=== PATIENT | female | born 1995 | race Two or more races ===

== ENCOUNTER 2024-12-02 14:10 | Inpatient (IN) | payer MEDICAID, OTHER ==
[~2024-12-02] VITALS: Ht 160 cm; Wt 68.3 kg
--- NOTE | 2024-12-02 15:17 | ED.PDOC ---
History of Present Illness HPI Comments 29-year-old female presents with a chief complaint of abdominal pain, flank pain, and fever. Patient states that her pain is localized to her RLQ, radiates to her right flank, describes as sharp, and rates her pain a 9/10. Patient denies any injuries or trauma prior to onset of symptoms. Patient denies any n ausea, vomiting, diarrhea, or rectal bleeding. Patient denies any possibility of being . Chief Complaint: Urinary Time Seen by MD: 15:03 Reviewed Notes: Medications, Allergies Allergies: Coded Allergies: NO KNOWN ALLERGIES (Unverified , 12/02/24) Information Source: Patient Mode of Arrival: Ambulatory Severity: Moderate Timing: Days Duration: Since onset Prehospital treatment: None Past Medical History PAST MEDICAL HISTORY: Denies Surgical History: Denies all surgeries [employer] ADJUSTMENT History: Denies all [employer] ADJUSTMENT Hx Family History Family History: Reviewed,noncontributory to illness Social History Smoker: Non-Smoker Alcohol: Denies ETOH Use Drugs: Denies Drug Use Lives In: Home Constitutional: reports: fever; denies: chills, diaphoresis, fatigue, malaise, sweats, weakness, others EENTM: denies: blurred vision, double vision, ear bleeding, ear discharge, ear drainage, ear pain, ear ringing, eye pain, eye redness, hearing loss, mouth pain, mouth swelling, nasal discharge, nose bleeding, nose congestion, nose pain, photophobia, tearing, throat pain, throat swelling, voice changes, others Respiratory: denies: cough, hemoptysis, orthopnea, SOB at rest, shortness of breath, SOB with excertion, stridor, wheezing, others Cardiovascular: denies: chest pain, dizzy spells, diaphoresis, Dyspnea on exertion, edema, irregular heart beat, left arm pain, lightheadedness, pal pitations, PND, syncope, others Gastrointestinal: reports: abdominal pain; denies: abdomen distended, blood streaked bowels, constipated, diarrhea, dysphagia, difficulty swallowing, hematemesis, melena, nausea, poor appetite, poor fluid intake, rectal bleeding, rectal pain, vomiting, others Genitourinary: reports: flank pain; denies: abnormal vagina bleeding, burning, dyspareunia, dysuria, frequency, hematuria, incontinence, pain, , vagina discharge, urgency, others Neurological: denies: dizziness, fainting, headache, left sided numbness, left sided weakness, numbness, paresthesia, pre-existing deficit, right sided numbness, right sided weakness, seizure, speech problems, tingling, tremors, weakness, others Musculoskeletal: denies: back pain, gout, joint pain, joint swelling, muscle pain, muscle stiffness, neck pain, others Integumetry: denies: bruises, change in color, change in hair/nails, dryness, laceration, lesions, lumps, rash, wounds, others Allergic/Immunocompromised: denies: Difficulty Healing, Frequent Infections, Hives, Itching, others Hematologic/Lymphatic: denies: anemia, blood clots, easy bleeding, easy bruising, swollen glands, others Endocrine: denies: excessive hunger, excessive sweating, excessive thirst, excessive urination, flushing, intolerance to cold, intolerance to heat, unexplained weight gain, unexplained weight loss, others Psychiatric: denies: anxiety, bipolar disorder, depression, hopeless, panic disorder, schizophrenia, sleepless, suicidal, others All Other Systems: Reviewed and Negative Physical Exam General Appearance: Moderate Distress HEENT: Normal ENT Inspection, Pharynx Normal, TMs Normal Neck: Full Range of Motion, Non-Tender, Normal, Normal Inspection Respiratory: Chest Non-Tender, Lungs Clear, No Accessory Muscle Use, No Respiratory Distress, Normal Breath Sounds Cardiovascular: No Edema, No JVD, No Murmur, No Gallop, Normal Peripheral Pulse s, Regular Rate/Rhythm Breast Exam: Deferred Gastrointestinal: No Organomegaly, No Pulsatile Mass, Normal Bowel Sounds, Soft, Suprapubic, Tenderness Genitalia: Deferred Pelvic: Deferred Rectal: Deferred Extremities: No calf tenderness, Normal capillary refill, Normal inspection, Normal range of motion, Non-tender, No pedal edema Musculoskeletal : Apperance: Normal Neurologic: Alert, traditional chinese herbalist II-XII nml as Tested, No Motor Deficits, Normal Affect, Normal Mood, No Sensory Deficits Cerebellar Function: Normal Reflexes: Normal Skin: Dry, Normal Color, Warm Lymphatic: No Adenopathy Was a procedure done? Was a procedure done?: No EKG EKG : Pulse Rate (adult): 147 [place]: Normal Cardiac Rhythm: ST Block: None Hypertrophy: None ST: Normal Differential Dx Considerations may include: Kidney stones UTI sepsis X-Ray, Labs, Meds, VS Vital Signs Date Time Temp Pulse Resp B/P (MAP) Pulse Ox O2 Delivery O2 Flow Rate FiO2 12/02/24 17:51 65 16 116/67 12/02/24 16:30 142 22 99 Room Air* 0 21 12/02/24 16:23 142 22 99 Room Air 12/02/24 16:23 102.3 142 22 102/67 (79) 99 102.3 12/02/24 15:17 147 12/02/24 14:57 147 12/02/24 14:51 99.7 156 19 110/52 (71) 98 Lab Test 12/02/24 17:22 12/02/24 15:46 12/02/24 14:43 Range/Units Lactic Acid Level 1.2 0.4-2.0 mmol/L White Blood Count 11.7 H 4.4-10.8 10^3/uL Red Blood Count 4.65 4.0-5.20 10^6/uL Hemoglobin 13.4 12.2-16.2 g/dL Hematocrit 39.5 36.0-46.0 % Mean Corpuscular Volume 85.1 80.0-100.0 fL Mean Corpuscular Hemoglobin 28.9 28.0-32.0 pg Mean Corpuscular Hemoglobin Concent 34.0 32.0-36.0 g/dL Red Cell Distribution Width 12.9 11.8-14.3 % Platelet Count 219 140-450 10^3/uL Mean Platelet Volume 8.3 6.9-10.8 fL Neutrophils (%) (Auto) 90.5 H 37.0-80.0 % Lymphocytes (%) (Auto) 4.4 L 10.0-50.0 % Monocytes (%) (Auto) 4.9 0.0-12.0 % Eosinophils (%) (Auto) 0.1 0.0-7.0 % Basophils (%) (Auto) 0.1 0.0-2.0 % Neutrophils # (Auto) 10.6 H 1.6-8.6 10 ^3/uL Lymphocytes # (Auto) 0.5 0.4-5.4 10 ^3/uL Monocytes # (Auto) 0.6 0-1.3 10 ^3/uL Eosinophils # (Auto) 0 0-0.8 10 ^3/uL Basophils # (Auto) 0 0-0.2 10 ^3/uL Nucleated Red Blood Cells 0.0 % Sodium Level 134 L 136-145 mmol/L Potassium Level 3.3 L 3.5-5.1 mmol/L Chloride Level 100 98-107 mmol/L Carbon Dioxide Level 24 20-31 mmol/L Anion Gap 10 5-15 Blood Urea Nitrogen 8 L 9-23 mg/dL Creatinine 0.71 0.550-1.02 mg/dL Glomerular Filtration Rate Calc 118 >90 mL/min BUN/Creatinine Ratio 11.3 10.0-20.0 Serum Glucose 100 74-106 mg/dL Calcium Level 9.6 8.7-10.4 mg/dL Urine Color Colorless Yellow Urine Clarity Clear Clear Urine pH 5.0 5.0-9.0 Urine Specific [place] 1.007 1.001-1.035 Urine Protein Negative Negative Urine Ketones Negative Negative Urine Blood 1+ H Negative /uL Urine Nitrite Negative Negative Urine Bilirubin Negative Negative Urine Urobilinogen Normal Negative mg/dL Urine Leukocyte Esterase 2+ Negative /uL Urine RBC 2 0 - 4 /hpf Urine Microscopic WBC 14 H 0-5 /HPF Urine Squamous Epithelial Cells Few <5 /hpf Urine Bacteria Few H None Seen /hpf Urine Glucose Normal Normal mg/dL Urine Test Negative Negative Current Medications Medications (Trade) Dose Ordered Sig/Ashley Route Start Time Stop Time Status Last Admin Ondansetron HCl (Zofran) 4 mg ONCE ONCE IV 12/02/24 15:15 12/02/24 15:16 DC 12/02/24 16:35 Sodium Chloride 1,000 ml @ 1,000 mls/hr Q1H ONCE IVB 12/02/24 15:15 12/02/24 16:14 DC 12/02/24 16:28 Morphine Sulfate 4 mg ONCE ONCE IV 12/02/24 15:15 12/02/24 15:16 DC 12/02/24 17:51 Sodium Chloride 1,000 ml @ 150 mls/hr Q6H40M ONCE IV 12/02/24 16:30 12/02/24 23:09 12/02/24 17:14 Ceftriaxone Sodium 50 ml @ 100 mls/hr ONCE ONCE IV 12/02/24 16:30 12/02/24 16:59 DC 12/02/24 16:37 CT scan of the abdomen and pelvis shows: IMPRESSION: 1. Nondistended fluid-filled small bowel loops throughout the abdomen that may represent gastroenteritis or ileus. No mesenteric edema or bowel wall thickening noted. No signs of colitis. The patient's urine test is positive for UTI The patient was given Zofran 4 mg IV push for the nausea The patient was being bolused with normal saline per sepsis protocol The patient received Rocephin IV piggyback for the UTI The patient's CBC shows an elevated white blood cell count of 11.7. The test is negative lactic acid is 1.7 Images Reviewed?: Images reviewed and evaluated by me Time of 1ST Reevaluation: 15:33 Reevaluation 1ST: Unchanged Patient Education/Counseling: Diagnosis, Treatment, Prognosis Family Education/Counseling: Diagnosis, Treatment, Prognosis Departure 1 Departure Time of Disposition: 19:38 Impression: Primary Impression: Sepsis secondary to UTI Disposition: ADMITTED INPATIENT Admit to: Med Surg Condition: Fair Critical Care Note Critical Care Time?: No Stability Stability form required: Yes Unstable for transfer: ED Physician Assesment (Clinical assesment) Heart Score Heart Score: Heart Score Response (Comments) Value History N/A 0 EKG N/A 0 Age N/A 0 Risk Factors N/A 0 Troponin N/A 0 Total 0 I personally scribed for NELIA FISCHER MD ([email or web address]) on 12/02/24 at 15:17. Electronically submitted by Raymundo Leonardo ([email or web address]). NELIA FISCHER MD Dec 02, 2024 15:17
[2024-12-02 15:54] LABS: Basophils # (auto) 0 10 ^3/uL (0-0.2); Basophils % (auto) 0.1 % (0.0-2.0); Eosinophils # (auto) 0 10 ^3/uL (0-0.8); Eosinophils % (auto) 0.1 % (0.0-7.0); Hematocrit 39.5 % (36.0-46.0); Hemoglobin 13.4 g/dL (12.2-16.2); Lymphocytes # (auto) 0.5 10 ^3/uL (0.4-5.4); Lymphocytes % (auto) 4.4 % (10.0-50.0); Mean Corpuscular Hemoglobin 28.9 pg (28.0-32.0); Mean Corpuscular Volume 85.1 fL (80.0-100.0); Monocytes # (auto) 0.6 10 ^3/uL (0-1.3); Monocytes % (auto) 4.9 % (0.0-12.0); Neutrophils # (auto) 10.6 10 ^3/uL (1.6-8.6); Neutrophils % (auto) 90.5 % (37.0-80.0); Platelet Count (auto) 219 10^3/uL (140-450); Red Blood Cells 4.65 10^6/uL (4.0-5.20); Red Cell Distribution Width 12.9 % (11.8-14.3); White Blood Cell 11.7 10^3/uL (4.4-10.8)
[2024-12-02 16:19] LABS: Chloride 100 mmol/L (98-107)
[2024-12-02 16:20] LABS: Anion Gap 10 (5-15); Calcium 9.6 mg/dL (8.7-10.4); Carbon Dioxide 24 mmol/L (20-31)
[2024-12-02 16:25] LABS: BUN/Creatinine Ratio 11.3 (10.0-20.0); Blood Urea Nitrogen 8 mg/dL (9-23); Glucose 100 mg/dL (74-106); Potassium 3.3 mmol/L (3.5-5.1); Sodium 134 mmol/L (136-145)
[2024-12-02] MEDS: SODIUM CHLORIDE 0.9% 1,000 ML IVB ONE (16:28)
[2024-12-02 16:30] VITALS: PULSE 142; RESP 22; O2SAT 99
[2024-12-02] MEDS: ONDANSETRON HCL 4 MG/2 ML VIAL IV ONE (16:35)
[2024-12-02] MEDS: cefTRIAXone 1GM/50ML D5W 50 ML IV ONE (16:37)
[2024-12-02 17:00] LABS: Urine Bacteria FEW /hpf (None Seen); Urine Blood 1+ /uL (Negative); Urine Clarity Clear (Clear); Urine Color Colorless (Yellow); Urine Protein, UAD Negative (Negative); Urine Specific Gravity 1.007 (1.001-1.035); Urine Squamous Epithelial Cell FEW /hpf (<5); Urine Urobilinogen Normal (Negative); Urine WBC 14 /HPF (0-5)
[2024-12-02] MEDS: SODIUM CHLORIDE 0.9% 1,000 ML IV ONE (17:14)
--- NOTE | 2024-12-02 17:46 | DVH ---
Procedure: CT CT AB PEL WO CON-NO ORAL OR IV 12/02/2024 05:02 PM Indication: pain Comparison Study: None available at time of dictation. Technique: Axial images were obtained and reformatted in coronal and sagittal planes. All CT scans at this medical facility are performed using dose modulation techniques as appropriate t o a performed exam including the following: Automated exposure control was utilized; adjustment of th e MA and/or KV according to patient size; and use of iterative reconstruction technique. CT Dose: CTDI volume is 9.94 mGy. Dose-length product is 550.55 mGy*cm FINDINGS: Lower Chest: Unremarkable. Hepatobiliary: Unremarkable. Spleen: Unremarkable. Pancreas: Unremarkable. Adrenal Glands: Unremarkable. tract: The kidneys are normal in size bilaterally without nephrolithiasis. No hydronephrosis. The urinary bladder is unremarkable. GI tract: The stomach is grossly normal in appearance. Nondistended fluid-filled small bowel loops no amisha throughout the abdomen. The large bowel is unremarkable. The appendix is normal. Lymphatics: No mesenteric, retroperitoneal or periportal lymphadenopathy. Vasculature: The abdominal aorta is normal in in caliber. Pelvic Organs: Anteverted uterus. A pessary is noted in the vaginal cuff. No adnexal lesion. Bones/soft tissues: No acute abnormality. Other: None. IMPRESSION: 1. Nondistended fluid-filled small bowel loops throughout the abdomen that may represent gastroenteri tis or ileus. No mesenteric edema or bowel wall thickening noted. No signs of colitis.
[2024-12-02] MEDS: MORPHINE SULFATE 4 MG/ML SYR/VIAL IV ONE (17:51)
[2024-12-02] MEDS ORDERED: ONDANSETRON HCL 4 MG/2 ML VIAL IV PRN (19:45)
[2024-12-02] MEDS: ACETAMINOPHEN 325 MG TAB PO PRN (21:34)
[2024-12-02] MEDS: POTASSIUM CHL 20 Meq TABLET PO ONE (21:34)
[2024-12-03] VITALS (8 sets, daily range): BP systolic 92–116; BP diastolic 53–68; PULSE 92–125; RESP 15–20; TEMP 97.5–100; O2SAT 96–99
--- NOTE | 2024-12-03 00:57 | DVHHP2 ---
History of Present Illness Reason for Visit: Abdominal pain History of Present Illness 29-year-old female Patient presents with a two day history of right lower quadrant abdominal pain that radiates to her right flank. She associates having fever for the past one day. Denies nausea or vomiting. She distress the pain as sharp and it is more localized to her right flank at the moment. Denies any other acute complaints at the moment. Past Medical History Denies Past Surgical History Denies Family History Noncontributory Smoke: No ALCOHOL: none Drugs: None Lives: with Family Review of Systems Review of Systems Review of systems are currently negative otherwise addressed HPI Allergies: Coded Allergies: NO KNOWN ALLERGIES (Unverified , 12/02/24) Medications Current Medications Medications Dose Ordered Sig/Ashley Route Start Time Stop Time Status Last Admin Dose Admin Acetaminophen/ Hydrocodone Bitart 1 tab Q4HP PRN PO 12/02/24 19:45 Ondansetron HCl 4 mg Q4HP PRN IV 12/02/24 19:45 Acetaminophen 650 mg Q6HP PRN PO 12/02/24 19:45 12/02/24 21:34 650 MG Exam Vital Signs Vital Signs Date Time Temp Pulse Resp B/P (MAP) Pulse Ox O2 Delivery O2 Flow Rate FiO2 12/02/24 23:32 98.9 99 20 97/57 (70) 98 98.9 12/02/24 16:30 Room Air* 0 21 Exam Gen: 29-year-old female mild distress Skin: Warm, dry, normal color and texture, no rash. HEENT: Normocephalic atraumatic, mucous membranes moist and pink. Neck: Cervical and supraclavicular nodes normal without enlargement, trachea is midline, thyroid gland is normal without masses. Pulmonary: Clear to auscultation and percussion bilaterally. Cardiac: Regular rate and rhythm. No murmur Abdomen: Soft, right CVA tenderness, nondistended, bowel sounds present all 4 quadrants, no guarding, no rigidity, no organomegaly. Extremities: No cyanosis, clubbing, no edema Neuro: Cranial nerves II through XII grossly intact, normal affect and speech, no focal motor deficits. Labs/Xrays ORDERING PHYSICIAN: NELIA FISCHER MD PROCEDURE(s): ABPL - CT AB PEL WO CON-NO ORAL OR IV REASON: pain ORDER NUMBER(s): [id number], ACCESSION NUMBER(s): [id number] Procedure: CT CT AB PEL WO CON-NO ORAL OR IV 12/02/2024 05:02 PM Indication: pain Comparison Study: None available at time of dictation. Technique: Axial images were obtained and reformatted in coronal and sagittal planes. All CT scans at this medical facility are performed using dose modulation techniques as appropriate to a performed exam including the following: Automated exposure control was utilized; adjustment of the MA and/or KV according to patient size; and use of iterative reconstruction technique. CT Dose: CTDI volume is 9.94 mGy. Dose-length product is 550.55 mGy*cm FINDINGS: Lower Chest: Unremarkable. Hepatobiliary: Unremarkable. Spleen: Unremarkable. Pancreas: Unremarkable. Adrenal Glands: Unremarkable. tract: The kidneys are normal in size bilaterally without nephrolithiasis. No hydronephrosis. The urinary bladder is unremarkable. GI tract: The stomach is grossly normal in appearance. Nondistended fluid-filled small bowel loops noted throughout the abdomen. The large bowel is unremarkable. The appendix is normal. Lymphatics: No mesenteric, retroperitoneal or periportal lymphadenopathy. Vasculature: The abdominal aorta is normal in in caliber. Pelvic Organs: Anteverted uterus. A pessary is noted in the vaginal cuff. No adnexal lesion. Bones/soft tissues: No acute abnormality. Other: None. IMPRESSION: 1. Nondistended fluid-filled small bowel loops throughout the abdomen that may represent gastroenteritis or ileus. No mesenteric edema or bowel wall thickening noted. No signs of colitis. Labs Test 12/02/24 17:22 12/02/24 15:46 12/02/24 14:43 Range/Units Lactic Acid Level 1.2 0.4-2.0 mmol/L White Blood Count 11.7 H 4.4-10.8 10^3/uL Red Blood Count 4.65 4.0-5.20 10^6/uL Hemoglobin 13.4 12.2-16.2 g/dL Hematocrit 39.5 36.0-46.0 % Mean Corpuscular Volume 85.1 80.0-100.0 fL Mean Corpuscular Hemoglobin 28.9 28.0-32.0 pg Mean Corpuscular Hemoglobin Concent 34.0 32.0-36.0 g/dL Red Cell Distribution Width 12.9 11.8-14.3 % Platelet Count 219 140-450 10^3/uL Mean Platelet Volume 8.3 6.9-10.8 fL Neutrophils (%) (Auto) 90.5 H 37.0-80.0 % Lymphocytes (%) (Auto) 4.4 L 10.0-50.0 % Monocytes (%) (Auto) 4.9 0.0-12.0 % Eosinophils (%) (Auto) 0.1 0.0-7.0 % Basophils (%) (Auto) 0.1 0.0-2.0 % Neutrophils # (Auto) 10.6 H 1.6-8.6 10 ^3/uL Lymphocytes # (Auto) 0.5 0.4-5.4 10 ^3/uL Monocytes # (Auto) 0.6 0-1.3 10 ^3/uL Eosinophils # (Auto) 0 0-0.8 10 ^3/uL Basophils # (Auto) 0 0-0.2 10 ^3/uL Nucleated Red Blood Cells 0.0 % Sodium Level 134 L 136-145 mmol/L Potassium Level 3.3 L 3.5-5.1 mmol/L Chloride Level 100 98-107 mmol/L Carbon Dioxide Level 24 20-31 mmol/L Anion Gap 10 5-15 Blood Urea Nitrogen 8 L 9-23 mg/dL Creatinine 0.71 0.550-1.02 mg/dL Glomerular Filtration Rate Calc 118 >90 mL/min BUN/Creatinine Ratio 11.3 10.0-20.0 Serum Glucose 100 74-106 mg/dL Calcium Level 9.6 8.7-10.4 mg/dL Lipase 39 12-53 U/L Urine Color Colorless Yellow Urine Clarity Clear Clear Urine pH 5.0 5.0-9.0 Urine Specific [place] 1.007 1.001-1.035 Urine Protein Negative Negative Urine Ketones Negative Negative Urine Blood 1+ H Negative /uL Urine Nitrite Negative Negative Urine Bilirubin Negative Negative Urine Urobilinogen Normal Negative mg/dL Urine Leukocyte Esterase 2+ Negative /uL Urine RBC 2 0 - 4 /hpf Urine Microscopic WBC 14 H 0-5 /HPF Urine Squamous Epithelial Cells Few <5 /hpf Urine Bacteria Few H None Seen /hpf Urine Glucose Normal Normal mg/dL Urine Test Negative Negative Assessment/Plan Assessment/Plan Assessment Acute pyelonephritis Acute abdominal pain Leukocytosis Hypothermia Plan Admit the patient to Med surge to the hospitalist Urine bacterial culture pending Rocephin IV Pain management Continue treatment per orders Plan discussed with: Patient My Orders Orders - WU BRAMBILA Procedure Category Date Status Time Basic Metabolic Panel LAB 12/03/24 Logged 04:00 Admit ADMIT 12/02/24 Transmitted 19:36 Hydrocodone-Acet PHA 12/02/24 In Process 5/325mg Tab ([place] 19:45 Ondansetron Hcl PHA 12/02/24 In Process (Zofran) 19:45 Complete Blood Count LAB 12/03/24 Logged 04:00 Condition: Stable LYLA 12/02/24 In Process 19:36 Acetaminophen Tablet PHA 12/02/24 In Process (Tylenol Tablet) 19:45 Clear Liq Diet DIET 12/03/24 Transmitted Breakfast Bedrest With Bathroom LYLA 12/02/24 In Process Privileg 19:36 Urine Bacterial DANYELL 12/03/24 Uncollected Culture 00:52 Ceftriaxone Ivpb PHA 12/03/24 Transmitted Rocephin 09:00 Date of Service: Dec 02, 2024 Billing Provider: WU BRAMBILA Common Visit Codes: [id number] INP/OBS CARE (MOD) WU BRAMBILA Dec 03, 2024 00:57
[2024-12-03 08:15] LABS: Basophils # (auto) 0 10 ^3/uL (0-0.2); Basophils % (auto) 0.1 % (0.0-2.0); Eosinophils # (auto) 0 10 ^3/uL (0-0.8); Eosinophils % (auto) 0.1 % (0.0-7.0); Hematocrit 33.7 % (36.0-46.0); Hemoglobin 11.5 g/dL (12.2-16.2); Lymphocytes # (auto) 0.7 10 ^3/uL (0.4-5.4); Lymphocytes % (auto) 5.5 % (10.0-50.0); Mean Corpuscular Hemoglobin 29.1 pg (28.0-32.0); Mean Corpuscular Hgb Conc. 34.3 g/dL (32.0-36.0); Mean Corpuscular Volume 84.9 fL (80.0-100.0); Monocytes # (auto) 1.1 10 ^3/uL (0-1.3); Monocytes % (auto) 8.8 % (0.0-12.0); Neutrophils # (auto) 11.1 10 ^3/uL (1.6-8.6); Neutrophils % (auto) 85.5 % (37.0-80.0); Platelet Count (auto) 187 10^3/uL (140-450); Red Blood Cells 3.97 10^6/uL (4.0-5.20); Red Cell Distribution Width 12.7 % (11.8-14.3)
[2024-12-03 08:35] LABS: Chloride 104 mmol/L (98-107); Sodium 136 mmol/L (136-145)
[2024-12-03 08:36] LABS: Anion Gap 10 (5-15); Carbon Dioxide 22 mmol/L (20-31)
[2024-12-03 08:37] LABS: Calcium 8.6 mg/dL (8.7-10.4); Potassium 2.6 mmol/L (3.5-5.1)
[2024-12-03 08:41] LABS: BUN/Creatinine Ratio 8.5 (10.0-20.0); Glucose 103 mg/dL (74-106)
[2024-12-03 08:48] LABS: Blood Urea Nitrogen 5 mg/dL (9-23)
[2024-12-03] MEDS: cefTRIAXone 1GM/50ML D5W 50 ML IV SCH (09:18)
--- NOTE | 2024-12-03 12:50 | DVHPN2 ---
Reviewed: Care Plan, H&P, Labs, Medications, Previous Orders, Radiology Changes from previous H/P or p: No Changes Objective Vitals Vital Signs Date Time Temp Pulse Resp B/P (MAP) Pulse Ox O2 Delivery O2 Flow Rate FiO2 12/03/24 09:00 99.1 101 15 92/53 (66) 98 99.1 12/03/24 03:01 Room Air* 0 21 Intake/Output Intake and Output 12/03/24 07:00 Intake Total 0 ml Output Total 0 ml Balance 0 ml Intake Oral 0 ml Output Urine Total 0 ml Medications Current Medications Medications Dose Ordered Sig/Ashley Route Start Time Stop Time Status Last Admin Dose Admin Acetaminophen/ Hydrocodone Bitart 1 tab Q4HP PRN PO 12/02/24 19:45 Ondansetron HCl 4 mg Q4HP PRN IV 12/02/24 19:45 Acetaminophen 650 mg Q6HP PRN PO 12/02/24 19:45 12/03/24 06:12 650 MG Ceftriaxone Sodium 50 ml @ 100 mls/hr DAILY@09 IV 12/03/24 09:00 12/03/24 09:18 100 MLS/HR Laboratory Results Laboratory Tests 12/03/24 07:28 Chemistry Test 12/02/24 15:46 12/03/24 07:28 Calcium Level 9.6 mg/dL (8.7-10.4) 8.6 mg/dL (8.7-10.4) L Lipid panel Test 12/02/24 15:46 Lipase 39 U/L (12-53) Urinalysis Test 12/02/24 14:43 Urine Color Colorless (Yellow) Urine Clarity Clear (Clear) Urine pH 5.0 (5.0-9.0) Urine Specific [place] 1.007 (1.001-1.035) Urine Protein Negative (Negative) Urine Ketones Negative (Negative) Urine Blood 1+ /uL (Negative) H Urine Nitrite Negative (Negative) Urine Bilirubin Negative (Negative) Urine Urobilinogen Normal mg/dL (Negative) Urine Leukocyte Esterase 2+ /uL (Negative) Urine RBC 2 /hpf (0 - 4) Urine Microscopic WBC 14 /HPF (0-5) H Urine Squamous Epithelial Cells Few /hpf (<5) Urine Bacteria Few /hpf (None Seen) H Urine Glucose Normal mg/dL (Normal) Urine Test Negative (Negative) Labs and/or images reviewed: Labs reviewed by me, Image(s) reviewed by me Assessment/Plan Assessment/Plan Acute gastroenteritis: Rocephin Flagyl Acute pyelonephritis: Urine cultures, continue Rocephin Acute dehydration: IV fluids. ruled out Plan discussed with: Patient Date of Service: Dec 03, 2024 Billing Provider: JEN ERNST MD Common Visit Codes: [id number] INP/OBS CARE(HIGH) JEN ERNST MD Dec 03, 2024 12:50
[2024-12-03] MEDS: HYDROcodone-ACET 5/325MG TAB PO PRN (13:08)
--- NOTE | 2024-12-03 13:14 | ECG ---
[facility] Test Date: 2024-12-02 Test Time: 14:57:14 Pat Name: ISRRAEL GAMINO Department: ED Room: 0296 B Gender: F Taxation Consultant: ABBY : 1995 Requested By: NELIA FISCHER Order Number: [id number] Reading MD: Michael De La Fuente Measurements Intervals [place] Rate: 147 P: 38 OK: 134 QRS: 80 QRSD: 74 T: -70 QT: 289 QTc: 452 Interpretive Statements Sinus tachycardia Nonspecific T abnormalities, diffuse leads Electronically Signed On 12-04-2024 13:14:27 PST by Michael De La Fuente Please click the below link to view image of tracing.
[2024-12-03] MEDS: metroNIDAZOLE 500MG/100ML 100 ML IV SCH (13:51)
[2024-12-03] MEDS: LACTATED RINGER'S 1,000 ML IV SCH (13:52)
[2024-12-04] VITALS (7 sets, daily range): BP systolic 91–115; BP diastolic 55–74; PULSE 73–122; RESP 18–20; TEMP 97.9–99.8; O2SAT 92–100
[2024-12-04] MEDS: MORPHINE SULFATE INJ 2 MG/ml SYRG IV ONE (03:42)
--- NOTE | 2024-12-04 12:36 | DVHPN2 ---
Reviewed: Care Plan, H&P, Labs, Medications, Previous Orders, Radiology Changes from previous H/P or p: No Changes Objective Vitals Vital Signs Date Time Temp Pulse Resp B/P (MAP) Pulse Ox O2 Delivery O2 Flow Rate FiO2 12/04/24 09:00 98.4 73 18 101/61 (74) 100 98.4 12/04/24 07:50 Room Air* 0 21 Intake/Output Intake and Output 12/04/24 07:00 Intake Total 2945 ml Output Total 0 ml Balance 2945 ml Intake Oral 1695 ml IV Total 1250 ml Output Urine Total 0 ml # Voids 6 # Bowel Movements 1 Medications Current Medications Medications Dose Ordered Sig/Ashley Route Start Time Stop Time Status Last Admin Dose Admin Acetaminophen/ Hydrocodone Bitart 1 tab Q4HP PRN PO 12/02/24 19:45 12/04/24 06:19 1 TAB Ondansetron HCl 4 mg Q4HP PRN IV 12/02/24 19:45 Acetaminophen 650 mg Q6HP PRN PO 12/02/24 19:45 12/03/24 06:12 650 MG Ceftriaxone Sodium 50 ml @ 100 mls/hr DAILY@09 IV 12/03/24 09:00 12/04/24 08:39 100 MLS/HR Metronidazole 100 ml @ 100 mls/hr Q8HR IV 12/03/24 14:00 12/04/24 06:19 100 MLS/HR Lactated Ringer's 1,000 ml @ 150 mls/hr Q6H40M IV 12/03/24 13:15 12/04/24 12:30 150 MLS/HR Laboratory Results Laboratory Tests 12/03/24 07:28 Urinalysis Test 12/02/24 14:43 Urine Color Colorless (Yellow) Urine Clarity Clear (Clear) Urine pH 5.0 (5.0-9.0) Urine Specific [place] 1.007 (1.001-1.035) Urine Protein Negative (Negative) Urine Ketones Negative (Negative) Urine Blood 1+ /uL (Negative) H Urine Nitrite Negative (Negative) Urine Bilirubin Negative (Negative) Urine Urobilinogen Normal mg/dL (Negative) Urine Leukocyte Esterase 2+ /uL (Negative) Urine RBC 2 /hpf (0 - 4) Urine Microscopic WBC 14 /HPF (0-5) H Urine Squamous Epithelial Cells Few /hpf (<5) Urine Bacteria Few /hpf (None Seen) H Urine Glucose Normal mg/dL (Normal) Urine Test Negative (Negative) Microbiology Microbiology Date/Time Source Procedure Growth Status 12/03/24 14:43 Voided Urine Urine Culture - Preliminary Resulted 12/02/24 17:22 Blood Blood Culture - Preliminary NO GROWTH AFTER 24 HOURS OF INCUBATION. Resulted Labs and/or images reviewed: Labs reviewed by me, Image(s) reviewed by me Assessment/Plan Assessment/Plan Acute gastroenteritis: Rocephin Flagyl Acute pyelonephritis: Blood cultures negative Urine cultures growing Gram- negative rods, sensitivity pending, continue Rocephin Acute dehydration: IV fluids. ruled out Plan discussed with: Patient My Orders Orders - JEN ERNST MD Procedure Category Date Status Time Metronidazole PHA 12/03/24 In Process 500mg/100ml (Flagyl 14:00 Lactated Ringer's PHA 12/03/24 In Process 13:15 Potassium Effervesent PHA 12/04/24 Transmitted Tab (Klor-Con/Ef) 13:00 Date of Service: Dec 04, 2024 Billing Provider: JEN ERNST MD Common Visit Codes: [id number] INP/OBS CARE(HIGH) JEN ERNST MD Dec 04, 2024 12:36
[2024-12-04] MEDS: POTASSIUM EFFERVESENT TAB 25 MEQ PO SCH (15:24)
[2024-12-05 01:00] VITALS: BP 100/60; PULSE 89; RESP 20; TEMP 98; O2SAT 97
[2024-12-05 05:00] VITALS: BP 105/56; PULSE 95; RESP 17; TEMP 98.8; O2SAT 95
[2024-12-05 07:42] LABS: Basophils # (auto) 0 10 ^3/uL (0-0.2); Basophils % (auto) 0.1 % (0.0-2.0); Eosinophils # (auto) 0.1 10 ^3/uL (0-0.8); Eosinophils % (auto) 1.1 % (0.0-7.0); Hematocrit 34.6 % (36.0-46.0); Hemoglobin 11.8 g/dL (12.2-16.2); Lymphocytes # (auto) 1.5 10 ^3/uL (0.4-5.4); Lymphocytes % (auto) 17.2 % (10.0-50.0); Mean Corpuscular Hemoglobin 28.8 pg (28.0-32.0); Mean Corpuscular Hgb Conc. 34.1 g/dL (32.0-36.0); Mean Corpuscular Volume 84.5 fL (80.0-100.0); Monocytes % (auto) 11.1 % (0.0-12.0); Neutrophils # (auto) 6.3 10 ^3/uL (1.6-8.6); Neutrophils % (auto) 70.5 % (37.0-80.0); Platelet Count (auto) 214 10^3/uL (140-450); Red Blood Cells 4.09 10^6/uL (4.0-5.20); Red Cell Distribution Width 13.1 % (11.8-14.3); White Blood Cell 8.9 10^3/uL (4.4-10.8)
[2024-12-05 08:01] LABS: Chloride 104 mmol/L (98-107); Potassium 3.9 mmol/L (3.5-5.1); Sodium 137 mmol/L (136-145)
[2024-12-05 08:02] LABS: Anion Gap 7 (5-15); Calcium 9.2 mg/dL (8.7-10.4); Carbon Dioxide 26 mmol/L (20-31)
[2024-12-05 08:07] LABS: Glucose 90 mg/dL (74-106)
[2024-12-05 08:18] LABS: BUN/Creatinine Ratio 9.1 (10.0-20.0); Blood Urea Nitrogen < 5 mg/dL (9-23)
[2024-12-05 08:52] VITALS: BP 108/62; PULSE 101; RESP 18; TEMP 97.9; O2SAT 98
[2024-12-05] MEDS ORDERED: TRAM-626 PO (11:23)
[2024-12-05] MEDS ORDERED: LEVO500T91 PO (11:23)
--- NOTE | 2024-12-05 11:25 | DVHPN2 ---
Reviewed: Care Plan, H&P, Labs, Medications, Previous Orders, Radiology Changes from previous H/P or p: No Changes Objective Vitals Vital Signs Date Time Temp Pulse Resp B/P (MAP) Pulse Ox O2 Delivery O2 Flow Rate FiO2 12/05/24 08:52 97.9 101 18 108/62 (77) 98 97.9 12/05/24 07:47 Room Air* 0 21 Intake/Output Intake and Output 12/05/24 07:00 Intake Total 3240 ml Balance 3240 ml Intake Oral 1040 ml IV Total 2200 ml # Voids 4 Medications Current Medications Medications Dose Ordered Sig/Ashley Route Start Time Stop Time Status Last Admin Dose Admin Acetaminophen/ Hydrocodone Bitart 1 tab Q4HP PRN PO 12/02/24 19:45 12/04/24 21:32 1 TAB Ondansetron HCl 4 mg Q4HP PRN IV 12/02/24 19:45 Acetaminophen 650 mg Q6HP PRN PO 12/02/24 19:45 12/03/24 06:12 650 MG Ceftriaxone Sodium 50 ml @ 100 mls/hr DAILY@09 IV 12/03/24 09:00 12/05/24 09:36 100 MLS/HR Metronidazole 100 ml @ 100 mls/hr Q8HR IV 12/03/24 14:00 12/05/24 06:21 100 MLS/HR Lactated Ringer's 1,000 ml @ 150 mls/hr Q6H40M IV 12/03/24 13:15 12/04/24 21:44 150 MLS/HR Potassium Bicarbonate 50 meq BID PO 12/04/24 13:00 12/05/24 09:36 50 MEQ Laboratory Results Laboratory Tests 12/05/24 06:30 Chemistry Test 12/05/24 06:30 Calcium Level 9.2 mg/dL (8.7-10.4) Urinalysis Test 12/02/24 14:43 Urine Color Colorless (Yellow) Urine Clarity Clear (Clear) Urine pH 5.0 (5.0-9.0) Urine Specific [place] 1.007 (1.001-1.035) Urine Protein Negative (Negative) Urine Ketones Negative (Negative) Urine Blood 1+ /uL (Negative) H Urine Nitrite Negative (Negative) Urine Bilirubin Negative (Negative) Urine Urobilinogen Normal mg/dL (Negative) Urine Leukocyte Esterase 2+ /uL (Negative) Urine RBC 2 /hpf (0 - 4) Urine Microscopic WBC 14 /HPF (0-5) H Urine Squamous Epithelial Cells Few /hpf (<5) Urine Bacteria Few /hpf (None Seen) H Urine Glucose Normal mg/dL (Normal) Urine Test Negative (Negative) Microbiology Microbiology Date/Time Source Procedure Growth Status 12/03/24 14:43 Voided Urine Urine Culture - Final Escherichia coli - ESBL Complete 12/02/24 17:22 Blood Blood Culture - Preliminary NO GROWTH AFTER 48 HOURS OF INCUBATION. Resulted Labs and/or images reviewed: Labs reviewed by me, Image(s) reviewed by me Assessment/Plan Assessment/Plan Acute gastroenteritis: Rocephin Flagyl Acute pyelonephritis: Blood cultures negative Urine cultures growing ESBL E coli sensitive to Levaquin Acute dehydration: IV fluids. ruled out We will discharge home on Levaquin for UTI Plan discussed with: Patient My Orders Orders - JEN ERNST MD Procedure Category Date Status Time Potassium Effervesent PHA 12/04/24 In Process Tab (Klor-Con/Ef) 13:00 Basic Metabolic Panel LAB 12/06/24 Verified 05:00 Basic Metabolic Panel LAB 12/07/24 Verified 05:00 Date of Service: Dec 05, 2024 Billing Provider: JEN ERNST MD Common Visit Codes: [id number] INP/OBS CARE(HIGH) EJN ERSNT MD Dec 05, 2024 11:25
--- NOTE | 2024-12-05 11:30 | DVHPN2 ---
Reviewed: Care Plan, H&P, Labs, Medications, Previous Orders, Radiology Changes from previous H/P or p: No Changes Objective Vitals Vital Signs Date Time Temp Pulse Resp B/P (MAP) Pulse Ox O2 Delivery O2 Flow Rate FiO2 12/05/24 08:52 97.9 101 18 108/62 (77) 98 97.9 12/05/24 07:47 Room Air* 0 21 Intake/Output Intake and Output 12/05/24 07:00 Intake Total 3240 ml Balance 3240 ml Intake Oral 1040 ml IV Total 2200 ml # Voids 4 Medications Current Medications Medications Dose Ordered Sig/Ashley Route Start Time Stop Time Status Last Admin Dose Admin Acetaminophen/ Hydrocodone Bitart 1 tab Q4HP PRN PO 12/02/24 19:45 12/04/24 21:32 1 TAB Ondansetron HCl 4 mg Q4HP PRN IV 12/02/24 19:45 Acetaminophen 650 mg Q6HP PRN PO 12/02/24 19:45 12/03/24 06:12 650 MG Ceftriaxone Sodium 50 ml @ 100 mls/hr DAILY@09 IV 12/03/24 09:00 12/05/24 09:36 100 MLS/HR Metronidazole 100 ml @ 100 mls/hr Q8HR IV 12/03/24 14:00 12/05/24 06:21 100 MLS/HR Lactated Ringer's 1,000 ml @ 150 mls/hr Q6H40M IV 12/03/24 13:15 12/04/24 21:44 150 MLS/HR Potassium Bicarbonate 50 meq BID PO 12/04/24 13:00 12/05/24 09:36 50 MEQ Laboratory Results Laboratory Tests 12/05/24 06:30 Chemistry Test 12/05/24 06:30 Calcium Level 9.2 mg/dL (8.7-10.4) Urinalysis Test 12/02/24 14:43 Urine Color Colorless (Yellow) Urine Clarity Clear (Clear) Urine pH 5.0 (5.0-9.0) Urine Specific [place] 1.007 (1.001-1.035) Urine Protein Negative (Negative) Urine Ketones Negative (Negative) Urine Blood 1+ /uL (Negative) H Urine Nitrite Negative (Negative) Urine Bilirubin Negative (Negative) Urine Urobilinogen Normal mg/dL (Negative) Urine Leukocyte Esterase 2+ /uL (Negative) Urine RBC 2 /hpf (0 - 4) Urine Microscopic WBC 14 /HPF (0-5) H Urine Squamous Epithelial Cells Few /hpf (<5) Urine Bacteria Few /hpf (None Seen) H Urine Glucose Normal mg/dL (Normal) Urine Test Negative (Negative) Microbiology Microbiology Date/Time Source Procedure Growth Status 12/03/24 14:43 Voided Urine Urine Culture - Final Escherichia coli - ESBL Complete 12/02/24 17:22 Blood Blood Culture - Preliminary NO GROWTH AFTER 48 HOURS OF INCUBATION. Resulted Labs and/or images reviewed: Labs reviewed by me, Image(s) reviewed by me Assessment/Plan Assessment/Plan Patient came in for abdominal pain nausea and vomiting found to have acute gastroenteritis by CT abdomen pelvis without contrast treated with Rocephin and Flagyl. Blood cultures negative she also had UTI urine cultures growing ESBL E coli sensitive to Levaquin. Appendicitis ruled out cholecystitis ruled out ruled out. The patient feels better tolerating regular diet afebrile vital signs stable wants to go home. Discharged home on Levaquin for UTI. Plan discussed with: Patient My Orders Orders - JEN ERNST MD Procedure Category Date Status Time Potassium Effervesent PHA 12/04/24 In Process Tab (Klor-Con/Ef) 13:00 Basic Metabolic Panel LAB 12/06/24 Verified 05:00 Basic Metabolic Panel LAB 12/07/24 Verified 05:00 Date of Service: Dec 05, 2024 Billing Provider: JEN ERNST MD Common Visit Codes: [id number] DISCH DAY >30min JEN ERNST MD Dec 05, 2024 11:30
[2024-12-05 12:20] VITALS: BP 114/76; PULSE 85; RESP 19; TEMP 98; O2SAT 97
== END 2024-12-05 12:30 | disposition home or self-care (01) | DRG 720 ==
LOC: ER 14:19 → OVERFLOW 19:36 → WEST WING 19:38
PROVIDERS: ADMIT Nurse Practitioner; ATTEND Family Medicine
DX: A41.51 Sepsis due to Escherichia coli [E. coli] (principal); A04.9 Bacterial intestinal infection, unspecified; E86.0 Dehydration; N10 Acute pyelonephritis
CPT/HCPCS: 36415; 74176; 80048; 81001; 81025; 83605; 83690; 85025; 87040; 87086; 87088; 87186; 93005; 96365; 96375; G0378; J2405; J3490